=== PATIENT | female | born 1980 | race Caucasian/White ===

== ENCOUNTER 2021-10-31 10:07 | Emergency (ER) | payer MEDICAID ==
[~2021-10-31] VITALS: Ht 160 cm; Wt 68.0 kg
[~2021-10-31 10:07] MED LIST: FERR-63 PO; PREN-88 PO
[2021-10-31] MEDS ORDERED: IBUP-2029 MT (14:01)
[2021-10-31 14:27] VITALS: BP 109/64
== END 2021-10-31 15:15 | disposition home or self-care (01) ==
LOC: ER 10:07
DX: O03.4 Incomplete spontaneous abortion without complication (principal)
CPT/HCPCS: 36415; 76830; 76856; 84702; 86850; 86900; 99284

== ENCOUNTER 2021-11-02 08:21 | Emergency (ER) | payer MEDICAID ==
[~2021-11-02] VITALS: Ht 144.8 cm; Wt 64.0 kg
[~2021-11-02 08:21] MED LIST changes: +IBUP-2029 MT
[2021-11-02] MEDS ORDERED: ACETAMINOPHEN 325MG TABLET PO STA (08:44)
[2021-11-02 09:22] LABS: CLARITY URINE CLEAR (CLEAR); COLOR URINE YELLOW (YELLOW); KETONES URINE NEGATIVE (NEGATIVE); LEUKOCYTE ESTERASE URINE NEGATIVE (NEGATIVE); NITRITE URINE NEGATIVE (NEGATIVE); OCCULT BLOOD URINE 2+ (NEGATIVE); PH URINE 5.5 (4.5-8.0); PROTEIN URINE NEGATIVE (NEGATIVE); SPECIFIC GRAVITY URINE 1.022 (1.005-1.030)
[2021-11-02 09:38] LABS: EOSINOPHILS % 2.2 % (0.0-5.0); HEMATOCRIT. 33.4 % (36.0-48.0); HEMOGLOBIN. 11.5 g/dL (12.0-16.0); LYMPHOCYTES % 30.6 % (20.0-50.0); MEAN CORPUSCULAR HEMOGLOBIN 31.9 pg (28.0-32.0); MEAN CORPUSCULAR VOLUME 92.9 fL (81.0-99.0); MEAN PLATELET VOLUME 7.8 fl (7.4-10.4); MONOCYTES % 5.5 % (2.0-8.0); NEUTROPHILS % 60.7 % (40.0-76.0); PLATELET 347 x1000/uL (130-400); RED BLOOD CELL COUNT 3.59 mill/uL (4.2-5.4); RED CELL DISTRIBUTION WIDTH 13.6 % (11.6-14.6)
[2021-11-02 09:46] LABS: CHLORIDE 111 mEq/L (98-107)
[2021-11-02 10:12] LABS: B-HCG QUANTITATIVE 949 mIU/mL (<3)
[2021-11-02 11:12] VITALS: BP 135/65
== END 2021-11-02 11:13 | disposition home or self-care (01) ==
LOC: ER 08:21
DX: O26.899 Other specified pregnancy related conditions, unspecified trimester (principal); R10.9 Unspecified abdominal pain; O03.9 Complete or unspecified spontaneous abortion without complication; Z3A.00 Weeks of gestation of pregnancy not specified; Z98.890 Other specified postprocedural states
CPT/HCPCS: 36415; 76801; 80053; 81003; 84702; 85025; 86850; 86900; 99284